=== PATIENT | male | born 1985 | race Caucasian/White ===

== ENCOUNTER 2020-12-12 19:09 | Emergency (ER) | payer SELFPAY ==
[2020-12-12 22:27] LABS: HEMOGLOBIN 13.8 gm/dl (14.0-17.5); RED BLOOD COUNT 4.25 M/UL (4.20-5.50); WHITE BLOOD COUNT 7.3 K/UL (4.5-11.0)
[2020-12-12 22:48] LABS: BUN/CREATININE RATIO 9 (0-10)
== END 2020-12-13 01:40 | disposition home or self-care (01) ==
LOC: ER1 19:09
PROVIDERS: Physician Assistant
DX: R07.89 Other chest pain (principal); E83.42 Hypomagnesemia; F17.290 Nicotine dependence, other tobacco product, uncomplicated
CPT/HCPCS: 71045; 80053; 82550; 82553; 83735; 83874; 84484; 85025; 85379; 93005; 99285; Q9967

== ENCOUNTER 2021-07-28 01:21 | Emergency (ER) | payer SELFPAY | END 2021-07-29 06:00 | disposition left against medical advice (07) | LOC: ER1 01:21 | DX: Z53.21 Procedure and treatment not carried out due to patient leaving prior to being seen by health care provider (principal) ==